=== PATIENT | female | born 1990 | race Caucasian/White ===

== ENCOUNTER 2022-01-07 11:12 | Inpatient (IN) ==
[2022-01-07] MEDS ORDERED: ONDANSETRON 4 MG/2 ML VIAL IV STA (11:48)
[2022-01-07] MEDS ORDERED: SODIUM CHLORIDE 0.9% 1,000 ML IV STA (11:48)
[2022-01-07 12:33] LABS: Bacteria,Urine Occasional /HPF (Few); Basophils # 0.1 10*3/uL (0.0-0.2); Basophils % 0.9 % (0.0-0.8); Bilirubin,Urine Small mg/dL (Negative); Blood, Urine Large mg/dL (Negative); Eosinophils # 0.4 10*3/uL (0.0-0.87); Eosinophils % 3.5 % (0.00-10.9); Glucose,Urine (UA) Negative (Negative); Hematocrit 41.3 VOL% (35.7-47.0); Immature Granulocytes % 0.3 %; Immature Granulocytes Absolute 0.03 #; Ketones,Urine Negative (Negative); Lymphocytes # 2.8 10*3/uL (1.4-4.0); Mean Corpuscular HGB Conc 33.9 GM/DL (32-36); Mean Corpuscular Volume 86.6 FL (87-102); Mean Platelet Volume 10.3 FL (9.6-12.0); Monocytes # 0.8 10*3/uL (0.11-0.8); Monocytes % 7.4 % (1.7-12.7); Mucus,Urine Occasional /LPF (Occasional); Neutrophils % 61.9 % (38.7-73.9); Nitrite,Urine Positive (Negative); Platelet Count 349 T/CUMM (130-400); Protein,Urine Trace mg/dL (Negative); RBC,Urine 40-45 /HPF (0-4); Red Blood Count 4.77 MC/CUMM (3.8-5.5); Red Cell Distribution Width 13.3 % (9.3-17.3); Squamous Epithelial Cell,Urine Occasional /HPF (0-10); Urine Appearance Clear (Clear); Urine Color Yellow (Yellow); Urine pH 8.5 (4.5-8.0); White Blood Count 10.6 T/CUMM (4-12)
[2022-01-07 12:50] LABS: Albumin 3.6 G/DL (3.4-5.0); Bilirubin,Total 2.3 MG/DL (0.20-1.00); Calcium 9.5 MG/DL (8.5-10.1); Osmolality,Calculated 274.7 MOS/KG (273-304); Potassium 3.8 MMOL/L (3.5-5.1); Total Protein 7.8 G/DL (6.4-8.2)
[2022-01-07] MEDS ORDERED: KETOROLAC 30 MG/1 ML VIAL IV PRN (14:47)
[2022-01-07] MEDS ORDERED: BISACODYL 5 MG TABLET PO PRN (14:47)
[2022-01-07] MEDS ORDERED: HYDROmorphone 1 MG/1 ML SYRINGE IV PRN (14:47)
[2022-01-07] MEDS ORDERED: ACETAMINOPHEN 325 MG TABLET PO PRN (14:47)
[2022-01-07] MEDS: PIPERACILLIN/TAZOBACTAM 3,375 MG in SODIUM CHLORIDE 0.9% 100 ML IV SCH ×2 (15:45→23:31)
[2022-01-07] MEDS: HYDROmorphone 1 MG/1 ML SYRINGE IV PRN (17:00)
[2022-01-07] MEDS: LACTATED RINGERS 1,000 ML IV SCH (17:00)
[2022-01-07] MEDS: ONDANSETRON 4 MG/2 ML VIAL IV PRN (17:00)
[2022-01-07] MEDS: levETIRAcetam 500 MG TABLET PO SCH (21:27)
[2022-01-08] MEDS: LACTATED RINGERS 1,000 ML IV SCH ×5 (01:05→16:39)
[2022-01-08 05:59] LABS: Basophils # 0.1 10*3/uL (0.0-0.2); Basophils % 0.9 % (0.0-0.8); Eosinophils # 0.6 10*3/uL (0.0-0.87); Eosinophils % 6.1 % (0.00-10.9); Hematocrit 40.3 VOL% (35.7-47.0); Hemoglobin 13.6 GM/DL (12.0-16.0); Immature Granulocytes % 0.3 %; Immature Granulocytes Absolute 0.03 #; Lymphocytes # 3.3 10*3/uL (1.4-4.0); Lymphocytes % 36.3 % (21.3-54.2); Mean Corpuscular HGB Conc 33.7 GM/DL (32-36); Mean Corpuscular Volume 87.8 FL (87-102); Mean Platelet Volume 10.9 FL (9.6-12.0); Monocytes # 0.7 10*3/uL (0.11-0.8); Monocytes % 7.7 % (1.7-12.7); Neutrophils % 48.7 % (38.7-73.9); Platelet Count 311 T/CUMM (130-400); Red Blood Count 4.59 MC/CUMM (3.8-5.5); Red Cell Distribution Width 13.6 % (9.3-17.3); White Blood Count 9.1 T/CUMM (4-12)
[2022-01-08 06:26] LABS: Albumin 3.2 G/DL (3.4-5.0); Bilirubin,Total 3.7 MG/DL (0.20-1.00); Osmolality,Calculated 278.3 MOS/KG (273-304); Potassium 4.2 MMOL/L (3.5-5.1); Total Protein 7.3 G/DL (6.4-8.2)
[2022-01-08] MEDS ORDERED: INDOMETHACIN SUPP 50 MG SUPP RECTAL ONE (08:00)
[2022-01-08] MEDS: PIPERACILLIN/TAZOBACTAM 3,375 MG in SODIUM CHLORIDE 0.9% 100 ML IV SCH ×3 (08:42→22:49)
[2022-01-08] MEDS: levETIRAcetam 500 MG TABLET PO SCH ×2 (08:42→21:02)
[2022-01-08] MEDS: PANTOPRAZOLE 40 MG TABLET PO SCH (09:00)
[2022-01-08 09:56] LABS: PT Patient Result 10.8 SECS (10.5-12.0)
[2022-01-08] MEDS ORDERED: ONDANSETRON 4 MG/2 ML VIAL ONE (12:13)
[2022-01-08] MEDS ORDERED: SUCCINYLCHOLINE 200 MG/10 ML VIAL ONE (12:13)
[2022-01-08] MEDS ORDERED: MIDAZOLAM 2 MG/2 ML VIAL ONE (12:13)
[2022-01-08] MEDS ORDERED: propofoL 200 MG/20 ML VIAL IV ONE (12:13)
[2022-01-08] MEDS ORDERED: LIDOCAINE 2% 5 ML VIAL ONE (12:13)
[2022-01-08] MEDS ORDERED: DEXAMETHASONE 4 MG/1 ML VIAL ONE (12:13)
[2022-01-08] MEDS ORDERED: fentaNYL 100 MCG/2 ML VIAL ONE (12:14)
[2022-01-08] MEDS ORDERED: SEVOFLURANE 1 UNIT/15 MINUTE INH ONE (14:11)
[2022-01-08] MEDS ORDERED: INDOCYANINE GREEN 25 MG VIAL IV ONE (14:24)
[2022-01-08] MEDS: ONDANSETRON 4 MG/2 ML VIAL IV PRN (15:00)
[2022-01-08] MEDS ORDERED: PROMETHAZINE INJ 25 MG in SODIUM CHLORIDE 0.9% 50 ML IV PRN (15:53)
[2022-01-08] MEDS: NICOTINE 7 MG/24 HR PATCH TRANSDERM SCH (17:10)
[2022-01-09] MEDS ORDERED: INDOCYANINE GREEN 25 MG VIAL IV ONE (06:00)
[2022-01-09 06:09] LABS: Basophils % 0.2 % (0.0-0.8); Eosinophils % 0.1 % (0.00-10.9); Hematocrit 38.3 VOL% (35.7-47.0); Immature Granulocytes % 0.6 %; Immature Granulocytes Absolute 0.08 #; Lymphocytes # 2.5 10*3/uL (1.4-4.0); Mean Corpuscular HGB Conc 33.9 GM/DL (32-36); Mean Corpuscular Volume 86.7 FL (87-102); Mean Platelet Volume 10.9 FL (9.6-12.0); Monocytes # 0.6 10*3/uL (0.11-0.8); Monocytes % 3.9 % (1.7-12.7); Neutrophils % 77.2 % (38.7-73.9); Platelet Count 311 T/CUMM (130-400); Red Blood Count 4.42 MC/CUMM (3.8-5.5); Red Cell Distribution Width 13.2 % (9.3-17.3); White Blood Count 14.1 T/CUMM (4-12)
[2022-01-09 06:31] LABS: Albumin 3.1 G/DL (3.4-5.0); Bilirubin,Total 1.1 MG/DL (0.20-1.00); Calcium 9.3 MG/DL (8.5-10.1); Osmolality,Calculated 278.4 MOS/KG (273-304); Potassium 3.9 MMOL/L (3.5-5.1); Total Protein 6.9 G/DL (6.4-8.2)
[2022-01-09] MEDS: LACTATED RINGERS 1,000 ML IV SCH ×4 (07:00→15:00)
[2022-01-09] MEDS: PANTOPRAZOLE 40 MG TABLET PO SCH (09:10)
[2022-01-09] MEDS: levETIRAcetam 500 MG TABLET PO SCH ×2 (09:12→21:16)
[2022-01-09] MEDS: NICOTINE 7 MG/24 HR PATCH TRANSDERM SCH (09:13)
[2022-01-09] MEDS ORDERED: ROCURONIUM 50 MG/5 ML VIAL IV ONE (09:30)
[2022-01-09] MEDS ORDERED: propofoL 200 MG/20 ML VIAL IV ONE (09:30)
[2022-01-09] MEDS ORDERED: SUCCINYLCHOLINE 200 MG/10 ML VIAL ONE (09:30)
[2022-01-09] MEDS ORDERED: fentaNYL 100 MCG/2 ML VIAL ONE ×3 (09:30→10:47)
[2022-01-09] MEDS ORDERED: MIDAZOLAM 2 MG/2 ML VIAL ONE (09:30)
[2022-01-09] MEDS ORDERED: LIDOCAINE 2% 5 ML VIAL ONE (09:30)
[2022-01-09] MEDS ORDERED: BUPIVACAINE MPF 0.25% 10 ML VIAL ONE (09:34)
[2022-01-09] MEDS ORDERED: LIDOCAINE 1%/EPI INJ 20 ML VIAL ONE (09:34)
[2022-01-09] MEDS ORDERED: TISSUE ADHESIVE 1 EACH APPLICATOR TOP ONE (09:34)
[2022-01-09] MEDS ORDERED: LACTATED RINGERS 1,000 ML IV SCH (10:00)
[2022-01-09] MEDS ORDERED: ONDANSETRON 4 MG/2 ML VIAL ONE (10:01)
[2022-01-09] MEDS ORDERED: DEXAMETHASONE 4 MG/1 ML VIAL ONE (10:01)
[2022-01-09] MEDS ORDERED: PHENYLEPHRINE 1 MG/10 ML SYRINGE IV ONE (10:09)
[2022-01-09] MEDS ORDERED: GLYCOPYRROLATE 0.4 MG/2 ML VIAL ONE (10:13)
[2022-01-09] MEDS ORDERED: ESMOLOL 100 MG/10 ML VIAL IV ONE (10:25)
[2022-01-09] MEDS ORDERED: SUGAMMADEX 200 MG/2 ML VIAL IV ONE (10:35)
[2022-01-09] MEDS ORDERED: SEVOFLURANE 1 UNIT/15 MINUTE INH ONE (10:42)
[2022-01-09] MEDS ORDERED: HYDROmorphone 1 MG/1 ML SYRINGE IV PRN (11:09)
[2022-01-09] MEDS ORDERED: PROMETHAZINE 25 MG/1 ML VIAL ONE (11:23)
[2022-01-09] MEDS ORDERED: PROMETHAZINE INJ 12.5 MG in SODIUM CHLORIDE 0.9% 50 ML IV ONE (11:24)
[2022-01-09] MEDS: PIPERACILLIN/TAZOBACTAM 3,375 MG in SODIUM CHLORIDE 0.9% 100 ML IV SCH ×2 (12:29→21:16)
[2022-01-09] MEDS ORDERED: NICOTINE 7 MG/24 HR PATCH TRANSDERM SCH (16:00)
[2022-01-10] MEDS: LACTATED RINGERS 1,000 ML IV SCH
[2022-01-10] MEDS: HYDROmorphone 1 MG/1 ML SYRINGE IV PRN (02:26)
[2022-01-10] MEDS: PIPERACILLIN/TAZOBACTAM 3,375 MG in SODIUM CHLORIDE 0.9% 100 ML IV SCH ×2 (05:03→13:40)
[2022-01-10 06:15] LABS: Basophils # 0.1 10*3/uL (0.0-0.2); Basophils % 0.5 % (0.0-0.8); Eosinophils # 0.1 10*3/uL (0.0-0.87); Eosinophils % 1.1 % (0.00-10.9); Hematocrit 35.4 VOL% (35.7-47.0); Hemoglobin 11.8 GM/DL (12.0-16.0); Immature Granulocytes % 0.5 %; Immature Granulocytes Absolute 0.06 #; Lymphocytes # 3.8 10*3/uL (1.4-4.0); Lymphocytes % 33.3 % (21.3-54.2); Mean Corpuscular HGB Conc 33.3 GM/DL (32-36); Mean Corpuscular Volume 88.9 FL (87-102); Mean Platelet Volume 11.1 FL (9.6-12.0); Monocytes # 0.9 10*3/uL (0.11-0.8); Monocytes % 7.5 % (1.7-12.7); Neutrophils % 57.1 % (38.7-73.9); Platelet Count 307 T/CUMM (130-400); Red Blood Count 3.98 MC/CUMM (3.8-5.5); White Blood Count 11.5 T/CUMM (4-12)
[2022-01-10 06:39] LABS: Albumin 2.9 G/DL (3.4-5.0); Bilirubin,Total 0.7 MG/DL (0.20-1.00); Calcium 8.5 MG/DL (8.5-10.1); Total Protein 6.5 G/DL (6.4-8.2)
[2022-01-10] MEDS: NICOTINE 7 MG/24 HR PATCH TRANSDERM SCH (09:25)
[2022-01-10] MEDS: levETIRAcetam 500 MG TABLET PO SCH (09:25)
[2022-01-10] MEDS: PANTOPRAZOLE 40 MG TABLET PO SCH (09:25)
[2022-01-10 11:13] VITALS: BP 116/65
[2022-01-10] MEDS: ONDANSETRON 4 MG/2 ML VIAL IV PRN (11:17)
== END 2022-01-10 14:16 | disposition home or self-care (01) | DRG 418 ==
LOC: N.ED 11:12 → N.EDINP 11:12 → N.3E 15:56
PROVIDERS: ADMIT Student in an Organized Health Care Education/Training Program; ATTEND Student in an Organized Health Care Education/Training Program
PROC: ERCPWSP (ICD-10-PCS; 2022-01-08 12:35)